=== PATIENT | male | born 1990 | race Caucasian/White ===

== ENCOUNTER 2024-06-30 07:11 | Emergency (ER) | payer OTHER, SELFPAY ==
[2024-06-30 07:23] VITALS: BP 133/91; BP 138/90; PULSE 100; PULSE 106; RESP 18; TEMP 36.8; O2SAT 97; O2SAT 98; BMI 28.2
[2024-06-30 08:00] LABS: MANUAL DIFF FLAG NO
[2024-06-30 08:01] LABS: Basophils Percent Auto 0.4 % (0-2); Eosinophils Absolute Auto 0.1 X10*3/uL (0.0-0.4); Hematocrit 49.5 % (42.0-52.0); Hemoglobin 17.2 g/dl (14.0-18.0); Imm Gran Abs Auto 0.03 X10*3/uL (0.00-0.03); Imm Gran Pct Auto 0.4 % (0.0-0.4); Lymphocytes Absolute Auto 0.2 X10*3/uL (1.2-4.9); Lymphocytes Percent Auto 2.8 % (20-40); Mean Corpuscular HGB Conc 34.7 g/dl (31.0-36.0); Mean Corpuscular Hemoglobin 32.5 pg (27.0-33.0); Mean Corpuscular Volume 93.4 fL (80.0-98.0); Mean Platelet Volume 10.3 fL (9.4-12.4); Monocytes Absolute Auto 0.5 X10*3/uL (0.1-1.2); Monocytes Percent Auto 6.7 % (2-11); Neutrophils Percent Auto 88.7 % (45-73); Platelet Count 173 X10*3/uL (160-400); Red Cell Distribution Width 11.8 % (11.0-16.0); White Blood Count 6.8 X10*3/uL (4.8-10.8)
[2024-06-30 08:16] LABS: Alanine Aminotransferase 26 U/L (0-40); Albumin Level 4.1 g/dL (3.5-5.0); Alkaline Phosphatase 56 U/L (39-117); Anion Gap 16 (12-20); Aspartate Amino Transferase 25 U/L (5-37); Bilirubin Total 0.9 mg/dL (0.0-1.0); Blood Urea Nitrogen 22 mg/dL (9-16); Carbon Dioxide 22 mmol/L (22-29); Chloride 107 mmol/L (96-108); Creatinine Clr Calc Pharmacy 78.8; Estimated Glomerular Filt Rate > 60; Glucose Random 137 mg/dL (60-115); Potassium 4.1 mmol/L (3.3-5.1); Sodium 141 mmol/L (135-145); Total Protein 6.8 g/dL (6.5-8.0)
[2024-06-30 08:59] LABS: Influenza A PCR NEGATIVE (Negative); Influenza B PCR NEGATIVE (Negative); Resp Syncy Virus RNA Qual PCR NEGATIVE (Negative); SARS COV2 PCR INHOUSE NEGATIVE (Negative)
[2024-06-30 12:28] VITALS: BP 123/90; PULSE 120; RESP 18; TEMP 36.7; O2SAT 95
--- NOTE | 2024-06-30 12:32 | ED.GENADULT ---
HPI - General Adult General Chief complaint: Nausea/Vomiting/Diarrhea Stated complaint: N/V/D X 1D,NO ABD PAIN,COVID EXP 2D AGO PER EMS Time Seen by Provider: 06/30/24 07:17 Source: patient Mode of arrival: ambulatory Limitations: no limitations History of Present Illness ED Provider: Valentino Fierro NP HPI narrative: 34-year-old male who presents emergency department for evaluation. He reports that yesterday night at approximately 22:00 he began experiencing episodes of vomiting that were green in nature and liquid brown-black stools. He states that today he has had 4 episodes of diarrhea. Has generalized diffuse abdominal comfort described as cramping. He admits that his significant other has been ill with similar symptoms for 2 days, reporting she is currently in the hospital being treated for a ?stomach bug?, and she had a friend she was recently around who was also ill with symptoms prior to hers starting. He suspects that he may have caught something from them?. He states he has had minimal oral intake. Reports use of a single antacid tablet, denies use of additional [id number] medications such as Pepto-Bismol. Related Data Previous Rx's ?Medication ?Instructions ?Recorded ondansetron 4 mg disintegrating 4 mg PO Q8H PRN nausea and 06/30/24 tablet vomiting #10 tabs Allergies Allergy/AdvReac Type Severity Reaction Status Date / Time ketoconazole Allergy Rash Verified 06/30/24 07:38 Penicillins [PCN] Allergy Rash Verified 06/30/24 07:38 Review of Systems Review of Systems: Yes all other systems are reviewed and are negative PMFSH Past Medical History Attestation statement: The following information was validated with the patient. Source: old records reviewed Social History Social History Smoked in Last 30 Days: No Use of substances other than those prescribed or required for medical reasons: No Advance Directives: No Advance Directives Information Provided: No Do you have a plan to hurt others: No Plan Physical Exam ED Vital Signs: Vital Signs - 24 hr 06/30/24 20:57 Temperature 99.6 F Pulse Rate 97 Respiratory Rate 15 Blood Pressure 116/78 Pulse Oximetry 98 Oxygen Delivery Method Room Air BMI result Body Mass Index 28.2 Appearance: Alert.?Oriented to person, place and time. No acute distress.?Normal affect. Eyes: Pupils equal, round and reactive to light.? ENT: Pharynx normal.?? Neck: Normal inspection.? Neck supple.?? CVS: Heart sounds normal. Normal heart rate and rhythm.? Pulses normal.?? Respiratory: No respiratory distress.? Lung sounds clear to auscultation bilaterally?? Abdomen: Soft and non-tender. Normoactive bowel sounds. No pulsatile mass.?? Skin: Skin warm and dry.? Normal skin color.? ?? Extremities: No lower extremity edema.? ? Neuro: Moves all extremities spontaneously. Sensation intact bilaterally. CN II-XII intact. No focal neuro deficits. Ambulates with normal steady gait. Course Course Course Narrative: RME performed by Anuja Zhao PA-C. Patient is a 34 year old assigned male at presenting to the emergency department with abdominal pain, nausea, vomiting. Detailed physical exam and review of systems are deferred to the accounts receivable administrator. Labs and swabs ordered. Patient placed back in the waiting room pending room availability and results. Reevaluation(s) Reevaluation #1: Tolerated p.o. trial with multiple clear liquids, no vomiting. Ambulatory with a steady gait. Discussed conservative treatment, management of gastroenteritis and strict return precautions. All questions answered. Time: 20:30 Medications Administered Discontinued Medications Generic Name Dose Route Start Last Admin Trade Name Freq PRN Reason Stop Dose Admin Acetaminophen 975 mg 06/30/24 16:21 06/30/24 16:37 Acetaminophen 325 Mg Tablet PO 06/30/24 16:22 975 mg ONCE ONE Administration Sodium Chloride 1,000 mls @ 999 mls/hr 06/30/24 16:00 06/30/24 17:51 Ns IV 06/30/24 17:00 Infused .Q1H1M SHON Infusion Sodium Chloride 1,000 mls @ 999 mls/hr 06/30/24 16:30 06/30/24 20:47 Ns IV 06/30/24 17:30 Infused .Q1H1M SHON Infusion Ibuprofen 600 mg 06/30/24 17:55 06/30/24 18:13 Ibuprofen 600 Mg Tablet PO 06/30/24 17:56 600 mg ONCE ONE Administration Ondansetron HCl 4 mg 06/30/24 12:33 06/30/24 12:35 Ondansetron Odt 4 Mg Tab.Rapdis TRANSLINGU 06/30/24 12:34 4 mg ONCE ONE Administration Ondansetron HCl 4 mg 06/30/24 16:00 06/30/24 16:37 Ondansetron Hcl 4 Mg/2 Ml Vial IVPUSH 06/30/24 16:01 4 mg ONCE ONE Administration Medical Decision Making Medical Decision Making [facility] Narrative: Patient is a 34-year-old male with past medical history of asthma, anxiety, depression, 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 Moreno at [facility] who presents emergency department for evaluation of vomiting and diarrhea as per HPI. Overall he is well-appearing, mildly tachycardic with pulse less than 110, low-grade temp 100.0 degrees orally, and mild facial flushing. Based on history and physical examination I suspect this is most likely a gastroenteritis given his recent ill contacts with similar symptoms and has benign abdominal examination. Clinically have lower suspicion for acute intra-abdominal pathologies such as acute cholecystitis, pancreatitis, diverticulitis, appendicitis, colitis. He does admit to having an episode of horvath/black colored stools, denies any juan blood, will obtain occult stool sample. CBC is without leukocytosis anemia or thrombocytopenia. No electrolyte derangement. BUN of 22 and creatinine 1.35, no prior levels available for comparison, he does state his kidney function is typically ?on the higher side? but does not recall any exact numbers. LFTs within normal range. Patient receive normal saline IV fluid, Zofran IV for nausea, and plan for reassessment Differential Diagnosis Differential Diagnoses: The differential diagnosis associated with the presentation includes (See narrative above) Admission/Observation Consideration of admission/observation: Escalation of care including admission/observation considered Lab Data MDM Lab Attestation statement: I reviewed the patient's lab results. (See narrative above) 06/30/24 07:53 06/30/24 07:53 Labs: Lab Results 06/30/24 06/30/24 Range/Units 07:53 16:32 WBC 6.8 (4.8-10.8) X10*3/uL RBC 5.30 (4.60-5.80) X10*6/uL Hgb 17.2 (14.0-18.0) g/dl Hct 49.5 (42.0-52.0) % MCV 93.4 (80.0-98.0) fL MCH 32.5 (27.0-33.0) pg MCHC 34.7 (31.0-36.0) g/dl RDW 11.8 (11.0-16.0) % Plt Count 173 (160-400) X10*3/uL MPV 10.3 (9.4-12.4) fL Immature Gran % (Auto) 0.4 (0.0-0.4) % Neut % (Auto) 88.7 H (45-73) % Lymph % (Auto) 2.8 L (20-40) % Alcorn % (Auto) 6.7 (2-11) % Eos % (Auto) 1.0 (0-4) % Baso % (Auto) 0.4 (0-2) % Lymph # (Auto) 0.2 L (1.2-4.9) X10*3/uL Alcorn # (Auto) 0.5 (0.1-1.2) X10*3/uL Eos # (Auto) 0.1 (0.0-0.4) X10*3/uL Baso # (Auto) 0.0 (0.0-0.2) X10*3/uL Abs Immat Gran (auto) 0.03 (0.00-0.03) X10*3/uL Absolute Neuts (auto) 6.0 (2.0-8.3) x10*3/uL Absolute Nucleated RBC 0.000 (0.0-0.012) X10*3/uL Nucleated RBC % (auto) 0.0 (0.0-0.2) /100WBC Sodium 141 (135-145) mmol/L Potassium 4.1 (3.3-5.1) mmol/L Chloride 107 (96-108) mmol/L Carbon Dioxide 22 (22-29) mmol/L Anion Gap 16 (12-20) BUN 22 H (9-16) mg/dL Creatinine 1.35 (0.5-1.4) mg/dL Estim Creat Clear Calc 78.8 Estimated GFR > 60 Random Glucose 137 H (60-115) mg/dL Calcium 9.0 (8.4-10.2) mg/dL Total Bilirubin 0.9 (0.0-1.0) mg/dL AST 25 (5-37) U/L ALT 26 (0-40) U/L Alkaline Phosphatase 56 (39-117) U/L Total Protein 6.8 (6.5-8.0) g/dL Albumin 4.1 (3.5-5.0) g/dL Lipase 12 (8-78) U/L Stool Occult Blood NEGATIVE (NEGATIVE) Influenza Type A (PCR) NEGATIVE (Negative) Influenza Type B (PCR) NEGATIVE (Negative) RSV RNA Qual (PCR) NEGATIVE (Negative) SARS-CoV-2 RNA (RT-PCR) NEGATIVE (Negative) Independent Historian Clinical information obtained from an independent historian. History obtained from or confirmed by: Spouse External Record Review External record reviewed: Outpatient record Discharge Plan Discharge Clinical Impression: Gastroenteritis Patient Disposition: Home, Self-Care Instructions: Gastroenteritis (ED) Additional Instructions: Use Zofran as needed for nausea/vomiting. Be sure that you are staying well hydrated and drinking plenty of fluids. Introduce a bland diet including crackers, bananas, rice, soup, toast, and boiled vegetables. This may progress to plain baked or boiled chicken or turkey. Avoid dairy products or foods high in fat or grease. You can take Tylenol 500 mg, 2 tablets (1,000mg) every 4-6 hours as needed for pain, but not to exceed 3 doses daily (3,000mg).? Follow-up with your primary care doctor within the next 3 days. Return to emergency department any new or worsening symptoms or Prescriptions: New ondansetron 4 mg tablet,disintegrating 4 mg PO Q8H PRN (Reason: nausea and vomiting) Qty: 10 0RF Referrals: Garo Ca PA-C [Primary Care Provider] - Interventions: ED Discharge Assessment Last Done: 06/30/24 20:57 Discharge Date/Time: 06/30/24 20:59 Print Language: Icelandic
[2024-06-30] MEDS: Ondansetron ODT 4 MG TAB.RAPDIS TRANSLINGU (12:35)
[2024-06-30 16:04] VITALS: BP 105/68; PULSE 105; RESP 20; TEMP 37.8; O2SAT 99
--- NOTE | 2024-06-30 16:05 | MHC.EDTECH ---
This pct just assumed care of patient ,vitals taken and Patient was hooked up to director of rehabilitative services .call christianson within pt reach .
[2024-06-30] MEDS: 0.9 % Sodium Chloride 1,000 ML 999 ML IV ×2 (16:27→16:38)
[2024-06-30] MEDS: Acetaminophen 325 MG TABLET 975 MG PO (16:37)
[2024-06-30] MEDS: ondansetron HCL 4 MG/2 ML VIAL IVPUSH (16:37)
[2024-06-30 16:38] LABS: OBS Int Ctl Valid YES; OBS1 NEGATIVE (NEGATIVE)
[2024-06-30 17:44] VITALS: BP 114/75; PULSE 104; RESP 16; TEMP 38.4; O2SAT 98
[2024-06-30 18:03] LABS: Lipase 12 U/L (8-78)
[2024-06-30] MEDS: Ibuprofen 600 MG TABLET PO (18:13)
[2024-06-30 19:54] VITALS: BP 116/78; PULSE 97; RESP 15; TEMP 37.6; O2SAT 98
--- NOTE | 2024-06-30 19:54 | MHC.EDTECH ---
2000 rounding done ,vitals taken ,Provider aware the Pt temp that gone down ,Patient was given a p/o challenged and tolerated fluids well ,But refused to eat anything .
[2024-06-30 20:57] VITALS: BP 116/78; PULSE 97; RESP 15; TEMP 37.6; O2SAT 98
== END 2024-06-30 20:59 | disposition home or self-care (01) ==
PROVIDERS: Nurse Practitioner Family; Emergency Provider Internal Medicine; PCP Physician Assistant
DX: K52.9 Noninfective gastroenteritis and colitis, unspecified (principal); R11.2 Nausea with vomiting, unspecified; Z03.818 Encounter for observation for suspected exposure to other biological agents ruled out; Z79.899 Other long term (current) drug therapy
CPT/HCPCS: 0241U; 80053; 82272; 83690; 85025; 96361; 96374; 99284; J2405